=== PATIENT | male | born 2005 | race Caucasian/White ===

== ENCOUNTER → 2025-06-27 | Outpatient (CLI) | payer OTHER | LOC: M PLAIMG 12:32 | PROVIDERS: ATTEND Physician Assistant Surgical | DX: S62.231A Other displaced fracture of base of first metacarpal bone, right hand, initial encounter for closed fracture (principal); X58.XXXA Exposure to other specified factors, initial encounter; Y92.9 Unspecified place or not applicable; Y93.9 Activity, unspecified; Y99.9 Unspecified external cause status; M79.89 Other specified soft tissue disorders; S62.101A Fracture of unspecified carpal bone, right wrist, initial encounter for closed fracture ==

== ENCOUNTER 2025-07-05 07:22 | Day surgery (SDC) | payer OTHER ==
[~2025-07-05] VITALS: Ht 177.8 cm; Wt 74.5 kg
[2025-07-05] MEDS: LR 1,000 ML IV SCH (07:55)
[2025-07-05] MEDS ORDERED: ONDANSETRON 4MG 2ML VIAL As Ordered ONE (08:40)
[2025-07-05] MEDS ORDERED: dexAMETHasone 4 MG/ML 1 ML VIAL As Ordered ONE (08:40)
[2025-07-05] MEDS ORDERED: ACETAMINOPHEN 1000MG/100ML IV BAG As Ordered ONE (08:40)
[2025-07-05] MEDS ORDERED: KETOROLAC 30 MG/ML 1 ML VIAL As Ordered ONE (08:42)
[2025-07-05] MEDS ORDERED: dexmedeTOMIDine (4 MCG/ML) 200 MCG/50 ML BTL As Ordered ONE (09:00)
[2025-07-05] MEDS: MIDAZOLAM INJ 2 MG/2 ML VIAL IV PRN (09:22)
[2025-07-05] MEDS: ROPIvacaine 0.5% 30ML VIAL PN ONE (09:26)
[2025-07-05] MEDS: dexAMETHasone 10 MG/1 ML VIAL PRES.FREE PN ONE (09:26)
[2025-07-05] MEDS ORDERED: GLYCOPYRROLATE INJ 0.2 MG/ML 2 ML VIAL As Ordered ONE (09:52)
[2025-07-05] MEDS ORDERED: ROCURONIUM BROMIDE 50MG/5ML VIAL As Ordered ONE (10:54)
[2025-07-05] MEDS ORDERED: SUGAMMADEX SODIUM 500 MG/5 ML VIAL As Ordered ONE (11:03)
[2025-07-05] MEDS ORDERED: PHENYLephrine 500MCG 5ML (100MCG/ML) SYRINGE As Ordered ONE (11:05)
[2025-07-05] MEDS ORDERED: LR 1,000 ML IV SCH (12:05)
[2025-07-05] MEDS ORDERED: HYDROMORPHONE HCL 0.5 MG/0.5 ML SYRINGE IV PRN (12:05)
[2025-07-05] MEDS ORDERED: ONDANSETRON 4MG 2ML VIAL IV PRN (12:05)
[2025-07-05] MEDS ORDERED: PERC5TAB12 PO (12:32)
[2025-07-05 13:31] VITALS: BP 131/75; TEMP 97.5; O2SAT 100
== END 2025-07-05 13:44 | disposition home or self-care (01) ==
LOC: M SDC 07:22
PROVIDERS: ATTEND Orthopaedic Surgery Hand Surgery
DX: S62.501A Fracture of unspecified phalanx of right thumb, initial encounter for closed fracture (principal); S63.101A Unspecified subluxation of right thumb, initial encounter; V29.39XA Other motorcycle (driver) (passenger) injured in unspecified nontraffic accident, initial encounter; Y99.9 Unspecified external cause status; F17.200 Nicotine dependence, unspecified, uncomplicated; G43.909 Migraine, unspecified, not intractable, without status migrainosus
CPT/HCPCS: 26615; 76000; C1713; J0131; J0665; J0690; J1100; J1596; J1885; J2250; J2371; J2405; J2795; J3010

== ENCOUNTER → 2025-07-21 | Outpatient (CLI) | payer OTHER ==
[~2025-07-21] MED LIST: PERC5TAB12 PO
== END ==
LOC: M SOG 07:26
PROVIDERS: ATTEND Physician Assistant
DX: S62.231A Other displaced fracture of base of first metacarpal bone, right hand, initial encounter for closed fracture (principal); W18.30XA Fall on same level, unspecified, initial encounter; Y92.009 Unspecified place in unspecified non-institutional (private) residence as the place of occurrence of the external cause

== ENCOUNTER → 2025-08-31 | Outpatient (CLI) | payer OTHER | LOC: M SOG 07:41 | PROVIDERS: ATTEND Physician Assistant | DX: S62.231D Other displaced fracture of base of first metacarpal bone, right hand, subsequent encounter for fracture with routine healing (principal) ==